=== PATIENT | female | born 1960 | race African-American/Black ===

== ENCOUNTER → 2017-02-08 | Outpatient (CLI) | payer OTHER ==
[~2017-02-08] MED LIST: AMLO10 PO; CLON0.2T PO; CYCL1TAB29 PO; IMIT25TA PO; LOSA50TA PO; METF500T PO; MONT10TA2 PO; POTA10TA8 PO; PRIL20CA9 PO; RANI150C PO; TIMO0.5S30 EACH EYE; VIST50CA PO; flonase nasal spray
[2017-02-08 12:19] LABS: AUTOMATED NEUTROPHIL # 3.5 TH/MM3 (1.8-7.7); BASOPHIL % 0.6 % (0.0-2.0); EOSINOPHIL # 0.3 TH/MM3 (0-0.4); EOSINOPHIL % 3.2 % (0.0-4.0); HEMATOCRIT 36.9 % (35.0-46.0); HEMO FLAGS DIFF FINAL; LYMPH % 43.2 % (9.0-44.0); LYMPHOCYTE # 3.4 TH/MM3 (1.0-4.8); MEAN CELL VOLUME 89.8 FL (80.0-100.0); MEAN CORPUSCULAR HEMOGLOBIN 29.3 PG (27.0-34.0); MEAN CORPUSCULAR HGB CONC 32.7 % (32.0-36.0); MONO % 9.7 % (0.0-8.0); NEUT % 43.3 % (16.0-70.0); PLATELET COUNT 233 TH/MM3 (150-450); RED BLOOD COUNT 4.11 MIL/MM3 (4.00-5.30); RED CELL DISTRIBUTION WIDTH 14.5 % (11.6-17.2)
[2017-02-08 12:39] LABS: ALT (GPT) 19 U/L (10-53); ANION GAP 5 MEQ/L (5-15); AST (GOT) 10 U/L (15-37); BICARBONATE 31.7 MEQ/L (21.0-32.0); BLOOD UREA NITROGEN 7 MG/DL (7-18); CHLORIDE 105 MEQ/L (98-107); GLOMERULAR FILTRATION RATE 102 ML/MIN (>89); GLUCOSE,FASTING 113 MG/DL (74-99); POTASSIUM 3.3 MEQ/L (3.5-5.1); SODIUM (NA) 142 MEQ/L (136-145)
[2017-02-08 12:49] LABS: ALKALINE PHOSPHATASE 107 U/L (45-117); HDL CHOLESTEROL 41.4 MG/DL (40.0-60.0); LDL CHOLESTEROL 50 MG/DL (0-99); TOTAL BILIRUBIN ADULT 0.4 MG/DL (0.2-1.0)
[2017-02-08 16:35] LABS: HEMOGLOBIN A1a 1.1 %; HEMOGLOBIN A1b 1.5 %; HEMOGLOBIN Ao 86.1 %; HEMOGLOBIN LA1C 1.9 %; HEMOGLOBIN P3 3.4 %
== END ==
LOC: CLAB 12:00
PROVIDERS: ATTEND Family Medicine
DX: K21.9 Gastro-esophageal reflux disease without esophagitis (principal); R73.02 Impaired glucose tolerance (oral); I10 Essential (primary) hypertension
CPT/HCPCS: 36415; 80053; 80061; 83036; 84443; 85025

== ENCOUNTER 2017-12-09 09:35 | Emergency (ER) | payer SELFPAY ==
[~2017-12-09] VITALS: Ht 175.3 cm; Wt 90.0 kg
[~2017-12-09 09:35] MED LIST changes: +CYCL10TA PO; -CYCL1TAB29 PO
[2017-12-09 09:45] VITALS: BP 175/121; PULSE 122; RESP 14; O2SAT 91
--- NOTE | 2017-12-09 10:03 | PD ---
HPI Chief Complaint: Headache Time Seen by Provider: 09:52 Travel History International Travel<30 days: No Contact w/Intl Traveler<30days: No Traveled to known affect area: No History of Present Illness HPI Patient has a history of headache onset about 2 hours ago, not improving, rated as 8 out of 10, frontal in nature however becomes generalized. Patient denies any associated factors such as fever, photophobia, meningismus, neck stiffness, nausea, vomiting, diarrhea, chest pain, abdominal pain, or back pain. There are no alleviating or aggravating factors. PFSH Past Medical History Arthritis: Yes Diabetes: Yes Patient Takes Glucophage: Yes Hypertension: Yes Ulcer: Yes Tetanus Vaccination: > 5 Years Influenza Vaccination: No Menopausal: Yes Past Surgical History Section: Yes Social History Alcohol Use: No Tobacco Use: No Substance Use: No Allergies-Medications (Allergen,Severity, Reaction): Coded Allergies: iodine (Unverified Allergy, Severe, SWELLING, 12/09/17) potassium iodide (Unverified Allergy, Severe, SWELLING, 12/09/17) povidone-iodine (Unverified Allergy, Severe, SWELLING, 12/09/17) sodium iodide (Unverified Allergy, Severe, SWELLING, 12/09/17) sodium iodide (Unverified Allergy, Severe, SWELLING, 12/09/17) Reported Meds & Prescriptions Reported Meds & Active Scripts Active Singulair (Montelukast Sodium) 10 Mg Tab 10 Mg PO HS Vistaril (Hydroxyzine Pamoate) 50 Mg Cap 50 Mg PO HS Imitrex (Sumatriptan Succinate) 25 Mg Tab 25 Mg PO DAILY PRN If a satisfactory response has not been obtained at 2 hours, a second dose may be administered Losartan (Losartan Potassium) 50 Mg Tab 50 Mg PO DAILY Clonidine (Clonidine HCl) 0.2 Mg Tab 0.2 Mg PO QID Norvasc (Amlodipine Besylate) 10 Mg Tab 10 Mg PO BID Metformin (Metformin HCl) 500 Mg Tab 500 Mg PO DAILY With a meal Reported Flexeril (Cyclobenzaprine HCl) 10 Mg Tab 10 Mg PO TID Timolol Opth Drops 0.5 % Soln 1 Drop EACH EYE BID Ranitidine (Ranitidine HCl) 150 Mg Cap 150 Mg PO BID Review of Systems General / Constitutional: No: Fever Eyes: No: Visual changes HENT: Positive: Headaches Cardiovascular: No: Chest Pain or Discomfort Respiratory: No: Shortness of Breath Gastrointestinal: No: Abdominal Pain Genitourinary: No: Dysuria Musculoskeletal: No: Pain Skin: No Rash Neurologic: No: Weakness Psychiatric: No: Depression Endocrine: No: Polydipsia Hematologic/Lymphatic: No: Easy Bruising Physical Exam Narrative GENERAL: SKIN: Warm and dry. HEAD: Atraumatic. Normocephalic. EYES: Pupils equal and round. No scleral icterus. No injection or drainage. ENT: No nasal bleeding or discharge. Mucous membranes pink and moist. NECK: Trachea midline. No JVD. CARDIOVASCULAR: Regular rate and rhythm. RESPIRATORY: No accessory muscle use. Clear to auscultation. Breath sounds equal bilaterally. GASTROINTESTINAL: Abdomen soft, non-tender, nondistended. Hepatic and splenic margins not palpable. MUSCULOSKELETAL: Extremities without clubbing, cyanosis, or edema. No obvious deformities. NEUROLOGICAL: Awake and alert. No obvious cranial nerve deficits. Motor grossly within normal limits. Five out of 5 muscle strength in the arms and legs. Normal speech. PSYCHIATRIC: Appropriate mood and affect; insight and judgment normal. Data Data Last Documented VS Vital Signs Date Time Temp Pulse Resp B/P (MAP) Pulse Ox O2 Delivery O2 Flow Rate FiO2 12/09/17 11:59 103 14 151/95 (113) 96 Nasal Cannula 4.00 Orders Orders Electrocardiogram (12/09/17 10:03) Complete Blood Count With Diff (12/09/17 10:03) Comprehensive Metabolic Panel (12/09/17 10:03) Prothrombin Time / Inr (Pt) (12/09/17 10:03) Act Partial Throm Time (Ptt) (12/09/17 10:03) Lipase (12/09/17 10:03) Chest, Single Ap (12/09/17 10:03) Ct Brain W/O Iv Contrast(Rout) (12/09/17 10:03) Iv Access Insert/Monitor (12/09/17 10:03) Ecg Monitoring (12/09/17 10:03) Oximetry (12/09/17 10:03) Drug Screen, Random Urine (12/09/17 10:03) Alcohol (Ethanol) (12/09/17 10:03) Salicylates (Aspirin) (12/09/17 10:03) Tylenol (Acetaminophen) (12/09/17 10:03) Hydralazine Inj (Apresoline Inj) (12/09/17 10:15) Sodium Chlor 0.9% 250 Ml Inj (Ns 250 Ml (12/09/17 10:15) Furosemide Inj (Lasix Inj) (12/09/17 11:30) Ceftriaxone Inj (Rocephin Inj) (12/09/17 11:30) Labetalol Inj (Trandate Inj) (12/09/17 11:45) Labs Laboratory Tests Test 12/09/17 10:10 12/09/17 11:30 White Blood Count 11.5 TH/MM3 Red Blood Count 4.31 MIL/MM3 Hemoglobin 13.0 GM/DL Hematocrit 38.8 % Mean Corpuscular Volume 90.1 FL Mean Corpuscular Hemoglobin 30.3 PG Mean Corpuscular Hemoglobin Concent 33.6 % Red Cell Distribution Width 14.9 % Platelet Count 355 TH/MM3 Mean Platelet Volume 8.2 FL Neutrophils (%) (Auto) 86.2 % Lymphocytes (%) (Auto) 9.5 % Monocytes (%) (Auto) 3.8 % Eosinophils (%) (Auto) 0.2 % Basophils (%) (Auto) 0.3 % Neutrophils # (Auto) 9.9 TH/MM3 Lymphocytes # (Auto) 1.1 TH/MM3 Monocytes # (Auto) 0.4 TH/MM3 Eosinophils # (Auto) 0.0 TH/MM3 Basophils # (Auto) 0.0 TH/MM3 CBC Comment DIFF FINAL Differential Comment Prothrombin Time 10.7 SEC Prothromb Time International Ratio 1.1 RATIO Activated Partial Thromboplast Time 27.4 SEC Blood Urea Nitrogen 13 MG/DL Creatinine 0.76 MG/DL Random Glucose 95 MG/DL Total Protein 8.2 GM/DL Albumin 3.4 GM/DL Calcium Level 8.9 MG/DL Alkaline Phosphatase 137 U/L Aspartate Amino Transf (AST/SGOT) 17 U/L Alanine Aminotransferase (ALT/SGPT) 29 U/L Total Bilirubin 0.2 MG/DL Sodium Level 139 MEQ/L Potassium Level 4.0 MEQ/L Chloride Level 101 MEQ/L Carbon Dioxide Level 32.8 MEQ/L Anion Gap 5 MEQ/L Estimat Glomerular Filtration Rate 95 ML/MIN Lipase 35 U/L Salicylates Level LESS THAN 1.7 MG/DL Acetaminophen Level LESS THAN 2.0 MCG/ML Ethyl Alcohol Level LESS THAN 3 MG/DL Urine Opiates Screen NEG Urine Barbiturates Screen NEG Urine Amphetamines Screen NEG Urine Benzodiazepines Screen POS Urine Cocaine Screen POS Urine Cannabinoids Screen NEG MDM Medical Decision Making Medical Screen Exam Complete: Yes Emergency Medical Condition: Yes Medical Record Reviewed: Yes Interpretation(s) EKG: Sinus tachycardia, 114 bpm, left atrial enlargement, LVH pattern, no evidence of any STEMI pattern pulse ox: excellent pleth wave, 96% ra, which is wnl Differential Diagnosis Intracranial hemorrhage versus tension headache versus sinus headache versus accelerated hypertension Narrative Course CT is negative for any evidence of intracranial hemorrhage mass but did show acute on chronic sinusitis. Electrolytes were within normal limits, renal functions were within normal limits, Diagnosis Primary Impression: Sinusitis Qualified Codes: J32.9 - Chronic sinusitis, unspecified Additional Impression: Accelerated hypertension Disposition: 01 DISCHARGE HOME Condition: Stable Berhane Isaac MD Dec 09, 2017 10:03
[2017-12-09] MEDS ORDERED: hydrALAZINE HCL 20 MG/ML VIAL IV PUSH ONE (10:15)
[2017-12-09] MEDS ORDERED: SODIUM CHLOR 0.9% 250 ML INJ 250 ML IV ONE (10:15)
[2017-12-09 10:21] VITALS: BP 164/98; PULSE 115; RESP 14; O2SAT 96
[2017-12-09 10:28] LABS: AUTOMATED NEUTROPHIL # 9.9 TH/MM3 (1.8-7.7); BASOPHIL % 0.3 % (0.0-2.0); EOSINOPHIL % 0.2 % (0.0-4.0); HEMATOCRIT 38.8 % (35.0-46.0); LYMPH % 9.5 % (9.0-44.0); LYMPHOCYTE # 1.1 TH/MM3 (1.0-4.8); MEAN CELL VOLUME 90.1 FL (80.0-100.0); MEAN CORPUSCULAR HEMOGLOBIN 30.3 PG (27.0-34.0); MEAN CORPUSCULAR HGB CONC 33.6 % (32.0-36.0); MEAN PLATELET VOLUME 8.2 FL (7.0-11.0); MONO % 3.8 % (0.0-8.0); MONOCYTE # 0.4 TH/MM3 (0-0.9); NEUT % 86.2 % (16.0-70.0); PLATELET COUNT 355 TH/MM3 (150-450); RED BLOOD COUNT 4.31 MIL/MM3 (4.00-5.30); RED CELL DISTRIBUTION WIDTH 14.9 % (11.6-17.2); WHITE BLOOD COUNT 11.5 TH/MM3 (4.0-11.0)
--- NOTE | 2017-12-09 10:33 | RADRPT ---
EXAM DATE/TIME: 12/09/2017 10:08 [facility] COMPARISON: CHEST SINGLE AP, May 01, 2016, 3:42. INDICATIONS : Short of breath, lethargic, headache MEDICAL HISTORY : None. SURGICAL HISTORY : None. ENCOUNTER: Initial ACUITY: 1 day PAIN SCORE: Non-responsive. LOCATION: Bilateral chest FINDINGS: Heart is enlarged. Mild interstitial edema is present. Minimal bibasilar probable change is noted. No pneumothorax. No congestive failure. CONCLUSION: Mild congestive failure. Catrachito Villafuerte MD FACR on December 09, 2017 at 10:30 Board Certified Radiologist. This report was verified electronically.
--- NOTE | 2017-12-09 10:34 | RADRPT ---
EXAM DATE/TIME: 12/09/2017 10:25 [facility] COMPARISON: CT BRAIN W/O CONTRAST, May 01, 2016, 3:32. INDICATIONS : Headache, lethargic RADIATION DOSE: 34.89 CTDIvol (mGy) MEDICAL HISTORY : Hypertension. Diabetes SURGICAL HISTORY : Tubal ligation. ENCOUNTER: Initial ACUITY: 1 day PAIN SCALE: 4/10 LOCATION: Bilateral cranial TECHNIQUE: Multiple contiguous axial images were obtained of the head. Using automated exposure control and adj ustment of the mA and/or kV according to patient size, radiation dose was kept as low as reasonably a chievable to obtain optimal diagnostic quality images. DICOM format image data is available electro nically for review and comparison. FINDINGS: CEREBRUM: The ventricles are normal for age. No evidence of midline shift, mass lesion, hemorrhage or acute in farction. No extra-axial fluid collections are seen. POSTERIOR FOSSA: The cerebellum and brainstem are intact. The 4th ventricle is midline. The cerebellopontine angle i s unremarkable. EXTRACRANIAL: The visualized portion of the orbits is intact. SKULL: Minimal ethmoid sinus disease is evident. Air-fluid level right maxillary sinus.. CONCLUSION: Acute and chronic sinus disease. Intracranial contents unremarkable. Catrachito Villafuerte MD FACR on December 09, 2017 at 10:31 Board Certified Radiologist. This report was verified electronically.
[2017-12-09 10:41] LABS: INTERNATIONAL NORMALIZED RATIO 1.1 RATIO
[2017-12-09 10:42] LABS: PROTHROMBIN TIME - PATIENT 10.7 SEC (9.8-11.6)
[2017-12-09 10:45] LABS: ALBUMIN 3.4 GM/DL (3.4-5.0); ALT (GPT) 29 U/L (10-53); AST (GOT) 17 U/L (15-37); BICARBONATE 32.8 MEQ/L (21.0-32.0); BLOOD UREA NITROGEN 13 MG/DL (7-18); CALCIUM 8.9 MG/DL (8.5-10.1); CHLORIDE 101 MEQ/L (98-107); CREATININE 0.76 MG/DL (0.50-1.00); GLOMERULAR FILTRATION RATE 95 ML/MIN (>89); GLUCOSE,RANDOM 95 MG/DL (74-106); SODIUM (NA) 139 MEQ/L (136-145)
[2017-12-09 10:48] LABS: ACETAMINOPHEN LESS THAN 2.0 MCG/ML (10.0-30.0); ALKALINE PHOSPHATASE 137 U/L (45-117); TOTAL BILIRUBIN ADULT 0.2 MG/DL (0.2-1.0); TOTAL PROTEIN 8.2 GM/DL (6.4-8.2)
[2017-12-09] MEDS ORDERED: FUROSEMIDE 40 MG/4 ML VIAL IV PUSH ONE (11:30)
[2017-12-09] MEDS ORDERED: cefTRIAXone INJ 1,000 MG in SODIUM CHLORIDE 0.9% INJ 100 ML IV ONE (11:30)
[2017-12-09] MEDS ORDERED: LABETALOL HCL 100 MG/20 ML VIAL IV PUSH ONE (11:45)
[2017-12-09 11:59] VITALS: BP 151/95; PULSE 103; RESP 14; O2SAT 96
[2017-12-09] MEDS ORDERED: AUGM875T3 PO (12:57)
[2017-12-09] MEDS ORDERED: FIOR30CA12 PO (12:57)
[2017-12-09 14:40] VITALS: BP 192/88; PULSE 106; RESP 16; O2SAT 96
--- NOTE | 2017-12-09 21:55 | EKG ---
Date Performed: 12/09/2017 Time Performed: 09:53:01 PTAGE: 57 years EKG: SINUS TACHYCARDIA POSSIBLE LEFT ATRIAL ENLARGEMENT POSSIBLE LEFT VENTRICULAR HYPERTROPHY AB NORMAL ECG PREVIOUS TRACING : 02/11/2012 20.18 DOCTOR: Rochelle Palomino Interpretating Date/Time 12/09/2017 21:52:39
== END 2017-12-09 15:14 | disposition home or self-care (01) ==
LOC: NEPC 09:35
DX: J32.9 Chronic sinusitis, unspecified (principal); I10 Essential (primary) hypertension; E11.9 Type 2 diabetes mellitus without complications; Z79.84 Long term (current) use of oral hypoglycemic drugs; Z79.899 Other long term (current) drug therapy
CPT/HCPCS: 70450; 71045; 80053; 80307; 83690; 85025; 85610; 85730; 93005; 96361; 96374; 96375; 99285; J0360; J0696; J1940; J7050

== ENCOUNTER 2018-04-23 20:13 | Emergency (ER) | payer SELFPAY ==
[~2018-04-23] VITALS: Ht 177.8 cm; Wt 65.0 kg
[~2018-04-23 20:13] MED LIST changes: +AUGM875T3 PO; +FIOR30CA12 PO; -POTA10TA8 PO; -PRIL20CA9 PO; -flonase nasal spray
[2018-04-23 20:21] VITALS: BP 203/98; PULSE 128; RESP 20; TEMP 98.5; O2SAT 100
[2018-04-23] MEDS ORDERED: SODIUM CHLOR 0.9% 1000 ML INJ 1,000 ML IV ONE (20:30)
[2018-04-23 20:36] VITALS: RESP 20; O2SAT 100
[2018-04-23 20:50] LABS: AUTOMATED NEUTROPHIL # 13.1 TH/MM3 (1.8-7.7); BASOPHIL % 0.2 % (0.0-2.0); EOSINOPHIL # 0.2 TH/MM3 (0-0.4); EOSINOPHIL % 1.1 % (0.0-4.0); HEMOGLOBIN 14.9 GM/DL (11.6-15.3); LYMPH % 15.6 % (9.0-44.0); LYMPHOCYTE # 2.5 TH/MM3 (1.0-4.8); MEAN CORPUSCULAR HEMOGLOBIN 28.8 PG (27.0-34.0); MEAN CORPUSCULAR HGB CONC 33.1 % (32.0-36.0); MEAN PLATELET VOLUME 8.8 FL (7.0-11.0); MONO % 2.4 % (0.0-8.0); MONOCYTE # 0.4 TH/MM3 (0-0.9); NEUT % 80.7 % (16.0-70.0); PLATELET COUNT 332 TH/MM3 (150-450); RED BLOOD COUNT 5.17 MIL/MM3 (4.00-5.30); RED CELL DISTRIBUTION WIDTH 14.2 % (11.6-17.2); WHITE BLOOD COUNT 16.2 TH/MM3 (4.0-11.0)
--- NOTE | 2018-04-23 20:59 | PD ---
HPI Chief Complaint: Seizure Time Seen by Provider: 20:20 Travel History International Travel<30 days: No Contact w/Intl Traveler<30days: No Traveled to known affect area: No History of Present Illness HPI Patient was brought back immediately from the waiting room due to what appeared to be seizure-like activity out in triage. However the patient was able to respond and answer questions appropriately immediately after this activity. Patient denied any alleviating or aggravating factors. Patient denies any associated factors such as fever, rash, headache, chest pain, back pain, flank pain, abdominal pain, nausea vomiting or diarrhea. Per chart review patient is allergic to iodine Past medical history significant for seizures, hypertension, GI ulcer, tubal ligation, , back surgery, diabetes. PFSH Past Medical History Arthritis: Yes Cardiovascular Problems: Yes (HTN) Diabetes: Yes (BORDERLINE) Patient Takes Glucophage: Yes Hypertension: Yes Seizures: Yes Ulcer: Yes Menopausal: Yes Past Surgical History Section: Yes Social History Alcohol Use: No Tobacco Use: No Substance Use: Yes (MARIJUANA) Allergies-Medications (Allergen,Severity, Reaction): Coded Allergies: iodine (Unverified Allergy, Severe, SWELLING, 12/09/17) potassium iodide (Unverified Allergy, Severe, SWELLING, 12/09/17) povidone-iodine (Unverified Allergy, Severe, SWELLING, 12/09/17) sodium iodide (Unverified Allergy, Severe, SWELLING, 12/09/17) sodium iodide (Unverified Allergy, Severe, SWELLING, 12/09/17) Reported Meds & Prescriptions Reported Meds & Active Scripts Active Metformin (Metformin HCl) 500 Mg Tab 500 Mg PO DAILY With a meal Losartan (Losartan Potassium) 100 Mg Tab 100 Mg PO DAILY Fiorinal-Codeine #3 (Zcygbrhsjg-Phjjklt-Pbadesmi-Codeine) 90-629-93-30 Mg Cap 1- 2 Cap PO Q4H PRN Do not exceed 6 capsules/day. Augmentin (Amoxicillin-Clavulanate) 875-125 Mg Tab 1 Tab PO BID 10 Days Singulair (Montelukast Sodium) 10 Mg Tab 10 Mg PO HS Vistaril (Hydroxyzine Pamoate) 50 Mg Cap 50 Mg PO HS Imitrex (Sumatriptan Succinate) 25 Mg Tab 25 Mg PO DAILY PRN If a satisfactory response has not been obtained at 2 hours, a second dose may be administered Losartan (Losartan Potassium) 50 Mg Tab 50 Mg PO DAILY Clonidine (Clonidine HCl) 0.2 Mg Tab 0.2 Mg PO QID Norvasc (Amlodipine Besylate) 10 Mg Tab 10 Mg PO BID Metformin (Metformin HCl) 500 Mg Tab 500 Mg PO DAILY With a meal Reported Flexeril (Cyclobenzaprine HCl) 10 Mg Tab 10 Mg PO TID Timolol Opth Drops 0.5 % Soln 1 Drop EACH EYE BID Ranitidine (Ranitidine HCl) 150 Mg Cap 150 Mg PO BID Review of Systems General / Constitutional: No: Fever Eyes: No: Visual changes HENT: No: Headaches Cardiovascular: No: Chest Pain or Discomfort Respiratory: No: Shortness of Breath Gastrointestinal: No: Abdominal Pain Genitourinary: No: Dysuria Musculoskeletal: No: Pain Skin: No Rash Neurologic: Positive: Seizures Psychiatric: No: Depression Endocrine: No: Polydipsia Hematologic/Lymphatic: No: Easy Bruising Physical Exam Narrative GENERAL: SKIN: Warm and dry. HEAD: Atraumatic. Normocephalic. EYES: Pupils equal and round. No scleral icterus. No injection or drainage. ENT: No nasal bleeding or discharge. Mucous membranes pink and moist. NECK: Trachea midline. No JVD. CARDIOVASCULAR: Tachycardic rate and regular rhythm. RESPIRATORY: No accessory muscle use. Clear to auscultation. Breath sounds equal bilaterally. GASTROINTESTINAL: Abdomen soft, non-tender, nondistended. Hepatic and splenic margins not palpable. MUSCULOSKELETAL: Extremities without clubbing, cyanosis, or edema. No obvious deformities. NEUROLOGICAL: Awake and alert. No obvious cranial nerve deficits. Motor grossly within normal limits. Five out of 5 muscle strength in the arms and legs. Normal speech.(Although the patient was answering questions adequately and was alert and oriented, moving her arms and legs and trunk in a thrashing manner stating that she always gets this way when she has high blood pressure, and that she has been missing her seizure medications too) PSYCHIATRIC: Appropriate mood and affect; insight and judgment normal. Data Data Last Documented VS Orders Orders Complete Blood Count With Diff (04/23/18 20:20) Comprehensive Metabolic Panel (04/23/18 20:20) Creatine Kinase (Cpk) (04/23/18 20:20) Lipase (04/23/18 20:20) Urinalysis - C+S If Indicated (04/23/18 20:20) Thyroid Stimulating Hormone (04/23/18 20:20) Chest, Single Ap (04/23/18 20:20) Ct Brain W/O Iv Contrast(Rout) (04/23/18 20:20) Iv Access Insert/Monitor (04/23/18 20:20) Ecg Monitoring (04/23/18 20:20) Oximetry (04/23/18 20:20) Ed Urine Pregnancytest Poc (04/23/18 20:20) Drug Screen, Random Urine (04/23/18 20:20) Alcohol (Ethanol) (04/23/18 20:20) Salicylates (Aspirin) (04/23/18 20:20) Tylenol (Acetaminophen) (04/23/18 20:20) Sodium Chlor 0.9% 1000 Ml Inj (Ns 1000 M (04/23/18 20:30) Electrocardiogram (04/23/18 ) Lorazepam Inj (Ativan Inj) (04/23/18 21:00) Ed Discharge Order (04/24/18 00:42) Labs Laboratory Tests Test 04/23/18 20:44 04/23/18 23:50 White Blood Count 16.2 TH/MM3 Red Blood Count 5.17 MIL/MM3 Hemoglobin 14.9 GM/DL Hematocrit 45.0 % Mean Corpuscular Volume 87.0 FL Mean Corpuscular Hemoglobin 28.8 PG Mean Corpuscular Hemoglobin Concent 33.1 % Red Cell Distribution Width 14.2 % Platelet Count 332 TH/MM3 Mean Platelet Volume 8.8 FL Neutrophils (%) (Auto) 80.7 % Lymphocytes (%) (Auto) 15.6 % Monocytes (%) (Auto) 2.4 % Eosinophils (%) (Auto) 1.1 % Basophils (%) (Auto) 0.2 % Neutrophils # (Auto) 13.1 TH/MM3 Lymphocytes # (Auto) 2.5 TH/MM3 Monocytes # (Auto) 0.4 TH/MM3 Eosinophils # (Auto) 0.2 TH/MM3 Basophils # (Auto) 0.0 TH/MM3 CBC Comment DIFF FINAL Differential Comment Blood Urea Nitrogen 13 MG/DL Creatinine 1.24 MG/DL Random Glucose 177 MG/DL Total Protein 9.0 GM/DL Albumin 4.5 GM/DL Calcium Level 9.0 MG/DL Alkaline Phosphatase 156 U/L Aspartate Amino Transf (AST/SGOT) 22 U/L Alanine Aminotransferase (ALT/SGPT) 35 U/L Total Bilirubin 0.6 MG/DL Sodium Level 142 MEQ/L Potassium Level 3.4 MEQ/L Chloride Level 107 MEQ/L Carbon Dioxide Level 19.9 MEQ/L Anion Gap 15 MEQ/L Estimat Glomerular Filtration Rate 54 ML/MIN Total Creatine Kinase 143 U/L Lipase 58 U/L Thyroid Stimulating Hormone 3rd Gen 0.436 uIU/ML Salicylates Level LESS THAN 1.7 MG/DL Acetaminophen Level LESS THAN 2.0 MCG/ML Ethyl Alcohol Level LESS THAN 3 MG/DL Urine Color YELLOW Urine Turbidity CLEAR Urine pH 7.0 Urine Specific [place] 1.011 Urine Protein 30 mg/dL Urine Glucose (UA) 50 mg/dL Urine Ketones NEG mg/dL Urine Occult Blood NEG Urine Nitrite NEG Urine Bilirubin NEG Urine Urobilinogen LESS THAN 2 mg/dL Urine Leukocyte Esterase NEG Urine RBC LESS THAN 1 /hpf Urine WBC 1 /hpf Urine Squamous Epithelial Cells 2 /hpf Urine Granular Casts 7 /lpf Urine Mucus FEW /lpf Microscopic Urinalysis Comment CULT NOT INDICATED Urine Opiates Screen NEG Urine Barbiturates Screen NEG Urine Amphetamines Screen NEG Urine Benzodiazepines Screen POS Urine Cocaine Screen POS Urine Cannabinoids Screen NEG MDM Medical Decision Making Medical Screen Exam Complete: Yes Emergency Medical Condition: Yes Medical Record Reviewed: Yes Differential Diagnosis Pseudoseizure versus seizure versus intracranial hemorrhage versus electrolyte abnormality versus supratentorial/stressors Narrative Course Reactive leukocytosis of 16,000 without any left shift, no anemia and normal platelet count Tox screen negative for Tylenol aspirin or alcohol Mildly decreased bicarb of 19.9 Normal liver function, pancreatic functions, and thyroid screening tests. Creatinine elevation 1.24 with a GFR decrease of 54 however the patient has a history of renal disease. Chest x-ray read by radiologist as no acute cardiopulmonary disease Head CT read by radiologist as no acute intracranial abnormality Tox screen is positive for cocaine On reevaluation the patient has been able to ambulate by herself to the bathroom and back to her room. She has not had any repeat episodes of what she presented with. And now she has family at the bedside that she is conversing with. Patient is clinically in no distress and cleared to be discharged. Patient was advised that the use of cocaine in the face of history of hypertension will accelerate injury to her kidney as well as other End arteries. Diagnosis Primary Impression: Pseudoseizure Additional Impressions: Medication refill Cocaine abuse Patient Instructions: General Instructions Scripts Metformin (Metformin) 500 Mg Tab 500 MG PO DAILY for Blood Sugar Management, #30 TAB 1 Refill With a meal Prov: Berhane Isaac MD 04/24/18 Losartan (Losartan) 100 Mg Tab 100 MG PO DAILY for Blood Pressure Management, #30 TAB 0 Refills Prov: Berhane Isaac MD 04/24/18 Disposition: 01 DISCHARGE HOME Condition: Stable Berhane Isaac MD Apr 23, 2018 20:59
[2018-04-23] MEDS ORDERED: LORazepam 2 MG/ML VIAL IV PUSH ONE (21:00)
--- NOTE | 2018-04-23 21:19 | RADRPT ---
EXAM DATE: 04/23/2018 9:16 PM EDT AGE/SEX: 57 years / Female INDICATIONS: Possible seizure CLINICAL DATA: This is the patient's initial encounter. Patient reports that signs and symptoms have been present for 1 day and indicates a pain score of Nonresponsive. MEDICAL/SURGICAL HISTORY: Hypertension. Diabetes. Non-responsive. COMPARISON: [facility] [place], CHEST SINGLE AP, 12/09/2017. . FINDINGS: A single AP view of the chest demonstrates the lungs to be symmetrically aerated without evidence of mass, infiltrate or effusion. The cardiomediastinal contours are unremarkable. Osseous structures a re intact. CONCLUSION: No acute cardiopulmonary disease Electronically signed by: Moi Choudhary MD 04/23/2018 9:17 PM EDT
[2018-04-23 21:35] LABS: ALBUMIN 4.5 GM/DL (3.4-5.0); ALKALINE PHOSPHATASE 156 U/L (45-117); ALT (GPT) 35 U/L (10-53); AST (GOT) 22 U/L (15-37); BICARBONATE 19.9 MEQ/L (21.0-32.0); BLOOD UREA NITROGEN 13 MG/DL (7-18); CHLORIDE 107 MEQ/L (98-107); CREATININE 1.24 MG/DL (0.50-1.00); GLOMERULAR FILTRATION RATE 54 ML/MIN (>89); GLUCOSE,RANDOM 177 MG/DL (74-106); SODIUM (NA) 142 MEQ/L (136-145); TOTAL BILIRUBIN ADULT 0.6 MG/DL (0.2-1.0)
[2018-04-23 21:36] LABS: ACETAMINOPHEN LESS THAN 2.0 MCG/ML (10.0-30.0)
--- NOTE | 2018-04-23 22:39 | RADRPT ---
EXAM DATE: 04/23/2018 10:34 PM EDT AGE/SEX: 57 years / Female INDICATIONS: Altered mental status. CLINICAL DATA: This is the patient's initial encounter. Patient reports that signs and symptoms have been present for 1 day and indicates a pain score of 5/10. MEDICAL/SURGICAL HISTORY: Hypertension. Seizures section. Lumbar spine surgery RADIATION DOSE: 45.46 CTDI (mGy) ; Patient motion COMPARISON: [facility] [place], CT BRAIN W/O CONTRAST, 12/09/2017. . TECHNIQUE: CT of the head without contrast. Using automated exposure control and adjustment of the mA and/or kV according to patient size, radiation dose was kept as low as reasonably achievable to ob tain optimal diagnostic quality images. DICOM format image data is available electronically for revi ew and comparison. FINDINGS: Cerebrum: The ventricles are normal for age. No evidence of midline shift, mass lesion, hemorrhage or acute infarction. No extraaxial fluid collections are seen. Posterior Fossa: The cerebellum and brainstem are intact. The 4th ventricle is midline. The cerebe llopontine angle is unremarkable. Extracranial: The visualized portion of the orbits is intact. Skull: The calvaria is intact. No evidence of skull fracture. CONCLUSION: 1. No acute intracranial abnormality Electronically signed by: Moi Choudhary MD 04/23/2018 10:37 PM EDT
[2018-04-24 00:10] LABS: BILIRUBIN, URINE NEG (NEG); BLOOD, URINE NEG (NEG); GLUCOSE,URINE 50 mg/dL (NEG); KETONE, URINE NEG (NEG); MUCUS URINE FEW /lpf (OCC); NITRITE,URINE NEG (NEG); SQUAMOUS EPITHELIAL CELL URINE 2 /hpf (0-5); URINE COLOR YELLOW (YELLW/STRAW); URINE LEUKOCYTE ESTERASE NEG (NEG)
[2018-04-24] MEDS ORDERED: LOSA100T PO (00:44)
[2018-04-24] MEDS ORDERED: METF500T PO (00:44)
--- NOTE | 2018-04-24 18:27 | EKG ---
Date Performed: 04/23/2018 Time Performed: 20:38:11 PTAGE: 57 years EKG: SINUS TACHYCARDIA ABNORMAL RHYTHM ECG Since the PREVIOUS TRACING , no significant change noted PREVIOUS TRACIN12/09/2017 09.53 DOCTOR: Winifred Greenberg Interpretating Date/Time 04/24/2018 18:26:32
== END 2018-04-24 01:04 | disposition home or self-care (01) ==
LOC: NEPC 20:13
DX: F44.5 Conversion disorder with seizures or convulsions (principal); Z76.0 Encounter for issue of repeat prescription; F14.10 Cocaine abuse, uncomplicated; R00.0 Tachycardia, unspecified; R94.31 Abnormal electrocardiogram [ECG] [EKG]; I10 Essential (primary) hypertension; E11.9 Type 2 diabetes mellitus without complications; F12.90 Cannabis use, unspecified, uncomplicated
CPT/HCPCS: 70450; 71045; 80053; 80307; 81001; 82550; 83690; 84443; 85025; 93005; 96374; 99285; J2060; J7030